=== PATIENT | male | born 1980 | race American Indian/Alaskan Native ===

== ENCOUNTER 2021-10-08 11:25 | Outpatient (CLI) | payer BC ==
[2021-10-08 12:26] LABS: Basophils # (Auto) 0.1 K/mm3 (0.0-0.1); Basophils % (Auto) 1.1 % (0.0-1.8); Eosinophils # (Auto) 0.2 K/mm3 (0.0-0.4); Eosinophils % (Auto) 3.7 % (0.0-4.3); Hematocrit 40.8 % (35.5-45.6); Lymphocytes # (Auto) 1.6 K/mm3 (1.2-5.4); Lymphocytes % (Auto) 24.6 % (13.4-35.0); Mean Corpuscular HGB Conc 32 % (32-34); Mean Corpuscular Volume 88 fl (84-94); Monocytes # (Auto) 0.4 K/mm3 (0.0-0.8); Monocytes % (Auto) 6.8 % (0.0-7.3); Platelet Count 132 K/mm3 (140-440); Red Blood Count 4.65 M/mm3 (3.65-5.03)
[2021-10-08 14:08] LABS: Calcium 9.9 mg/dL (8.4-10.2)
[2021-10-08 14:46] LABS: Creatinine,Urine 258.7 mg/dL (0.1-20.0); Protein/Creatinine Ratio,Urine 0.4
[2021-10-10 18:07] LABS: Myeloperoxidase Antibody <1.0 AI (<1.0)
[2021-10-14 08:44] LABS: HIV-1 Antibody Differentiation SEE SCANNED RESULT; HIV-2 Antibody Differentiation SEE SCANNED RESULT
[2021-10-14 11:51] LABS: Abnormal Protein Band 1 0.6 g/dL; Albumin 4.3 g/dL (3.8-4.8); Gamma Globulin 1.7 g/dL (0.8-1.7)
== END 2021-10-08 11:26 | disposition home or self-care (01) ==
LOC: LAB 11:25
PROVIDERS: ATTEND Internal Medicine Nephrology
DX: N18.31 Chronic kidney disease, stage 3a (principal)
CPT/HCPCS: 36415; 80048; 82570; 83615; 84156; 84165; 85025; 86021; 86038; 86160; 86334; 86689; 86803; 87350